=== PATIENT | male | born 1945 | race Caucasian/White ===

== ENCOUNTER 2017-12-26 08:44 | Day surgery (SDC) | payer MEDICARE ==
[2017-12-24 11:14] VITALS: BMI 23.4
[2017-12-26 09:42] VITALS: RESP 16; TEMP 98.5
[2017-12-26] MEDS: LACTATED RINGERS 1,000 ML IV SCH ×2 (09:47→10:27)
[2017-12-26] MEDS ORDERED: LIDOCAINE 1% 20 ML VIAL (10MG/ML) FOR IV START INTRADERMA ONE (09:48)
[2017-12-26] MEDS ORDERED: LIDOCAINE 1% INJ 10MG/ML (20 ML MDV) ONE (10:28)
[2017-12-26] MEDS ORDERED: PROPOFOL 10 MG/ML 20 ML VIAL IV ONE (10:28)
--- NOTE | 2017-12-26 11:08 | P.PCN ---
Date of Procedure: 12/26/17 Procedure(s) Performed: Procedure: Total colonoscopy with polypectomy. Preoperative diagnosis: Screening for neoplasia. Postoperative diagnosis: Small distal sigmoid polyp snared but no large polyps or cancer. Sigmoid diverticulosis with no evidence of acute diverticulitis or strictures. Preparation: HalfLytely prep. Sedation: Was provided by anesthesia. Brief clinical history: The patient is a 72-year-old male who is scheduled for this evaluation for screening for neoplasia age being his risk factor. His prior exam was around 10 years ago. The patient has no abdominal complaints, bleeding or anemia. Procedure: With the patient on his left lateral decubitus position and after informed consent and adequate sedation, the perianal area was inspected and it did not show any fissures or fistulas. There were no masses felt on digital rectal examination. The Olympus CFQ 160L video colonoscope was then inserted in the rectum in the usual fashion and advanced to the cecum. There were several diverticular orifices seen scattered in the sigmoid but I saw no evidence of acute diverticulitis or strictures. A small polyp was seen in the distal sigmoid which was snared and retrieved by suction, but there were no large polyps or cancer. I retroflexed the endoscope in the rectum before the endoscope was withdrawn. The patient tolerated the procedure well. Plan: The patient was reassured. Discussed dietary measures. He will follow up with you as planned and I recommended repeat exam in 5-10 years depending on pathology results.
[2017-12-26 11:33] VITALS: BP 172/93; PULSE 56
== END 2017-12-26 11:59 | disposition home or self-care (01) ==
LOC: ORWHC2ENDO 08:44
DX: Z12.11 Encounter for screening for malignant neoplasm of colon (principal); D12.5 Benign neoplasm of sigmoid colon; K57.30 Diverticulosis of large intestine without perforation or abscess without bleeding; J44.9 Chronic obstructive pulmonary disease, unspecified; Z87.891 Personal history of nicotine dependence; E78.5 Hyperlipidemia, unspecified; Z79.899 Other long term (current) drug therapy
CPT/HCPCS: 88305; 45385; J2001; J2704

== ENCOUNTER → 2023-10-15 | Outpatient (CLI) | payer MEDICARE ==
--- NOTE | 2023-10-15 20:37 | US ---
EXAMINATION TYPE: US renals and bladder DATE OF EXAM: 10/15/2023 COMPARISON: NONE CLINICAL INDICATION: Male, 77 years old with history of R35.1 Nocturia; Nocturia. EXAM MEASUREMENTS: Right Kidney: 10.7 x 5.3 x 5.3 cm Left Kidney: 11.0 x 4.8 x 5.9 cm Post Void Residual Volume: 103.33 mL Right Kidney: Septated anechoic area seen upper pole: 2.2 x 2.0 x 1.9 cm. Subcentimeter anechoic ar eas seen upper pole. Left Kidney: No hydronephrosis or masses seen Renal cortical echogenicity and thickness within normal limits. Bladder: Appears anechoic. Bilateral Jets seen: Yes Normal Post Void Residual: No Prostate is prominent in size. IMPRESSION: 1. There is a septated 2.2 cm cyst upper pole right kidney. 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 Recommend follow-up CT scan.
== END | disposition home or self-care (01) ==
LOC: RADUSWWP 16:04
PROVIDERS: ATTEND Family Medicine
DX: N28.1 Cyst of kidney, acquired (principal); R35.1 Nocturia
CPT/HCPCS: 76770